=== PATIENT | male | born 1970 | race Caucasian/White ===

== ENCOUNTER 2017-04-06 13:50 | Emergency (ER) | payer MEDICAID ==
[~2017-04-06] VITALS: Ht 175.3 cm; Wt 104.3 kg
[2017-04-06] MEDS ORDERED: TETRACAINE HCL 0.5% OPHTHALMIC DROPS 15 ML OP ONE (13:51)
[2017-04-06] MEDS ORDERED: BALANCED SALT IRRIG SOLN 15 ML IO ONE (13:51)
[2017-04-06] MEDS ORDERED: FLUORESCEIN SODIUM 1 MG OPHTHALMIC STRIP OP ONE (13:51)
[2017-04-06 13:57] VITALS: BP_SYST 162
[2017-04-06 15:04] VITALS: BP_SYST 155
== END 2017-04-06 15:04 | disposition home or self-care (01) ==
LOC: SED 13:50
DX: T15.82XA Foreign body in other and multiple parts of external eye, left eye, initial encounter (principal); H57.12 Ocular pain, left eye; X58.XXXA Exposure to other specified factors, initial encounter; Y93.89 Activity, other specified; Y92.89 Other specified places as the place of occurrence of the external cause; Y99.8 Other external cause status
CPT/HCPCS: 99283

== ENCOUNTER 2017-07-16 23:33 | Emergency (ER) | payer MEDICAID, MEDICARE ==
[~2017-07-16] VITALS: Ht 175.3 cm; Wt 77.1 kg
[2017-07-17 00:18] VITALS: BP_SYST 155
[2017-07-17 01:36] VITALS: BP_SYST 145
== END 2017-07-17 01:36 | disposition home or self-care (01) ==
LOC: SED 23:33
DX: G89.29 Other chronic pain (principal); M54.9 Dorsalgia, unspecified; M25.569 Pain in unspecified knee; F41.9 Anxiety disorder, unspecified; F17.210 Nicotine dependence, cigarettes, uncomplicated
CPT/HCPCS: 99283